=== PATIENT | male | born 1970 | race Caucasian/White ===

== ENCOUNTER 2017-01-07 06:04 | Emergency (ER) | payer MEDICAID ==
[~2017-01-07] VITALS: Ht 172.7 cm; Wt 70.0 kg
[~2017-01-07 06:04] MED LIST: PERC5TAB12 PO; PRED50 PO; ROBA500T PO
[2017-01-07 06:06] VITALS: BP 170/106; PULSE 125; RESP 15; TEMP 97.9; O2SAT 97
[2017-01-07] MEDS ORDERED: CYCLOBENZAPRINE HCL 10 MG TAB PO ONE (06:30)
[2017-01-07] MEDS ORDERED: IBUPROFEN 600 MG TAB PO ONE (06:30)
[2017-01-07] MEDS ORDERED: CYCL1TAB29 PO (06:36)
[2017-01-07] MEDS ORDERED: IBUP-1129 PO (06:36)
[2017-01-07] MEDS ORDERED: HYDR-3533 PO (06:36)
--- NOTE | 2017-01-07 06:36 | PD ---
HPI Chief Complaint: Back/ Neck Pain or Injury Time Seen by Provider: 06:25 Travel History International Travel<30 days: No Contact w/Intl Traveler<30days: No Traveled to known affect area: No History of Present Illness HPI 46-year-old male patient with history of chronic neck and back pains, herniated disc, presents to the ER today because he states that he was bending down to tie his shoe to go to work this morning when he had a stabbing pain in his left lower back area radiating down his left buttocks. He states that the pain was initiated and 810, but he took a Lortab from his and is now for a 10. He states he feels like a spasm every once in a while and worsens when he tries to move. He denies any incontinence, lower extremity numbness, or any other issues. Modifying Factors: Worse with movement Associated Signs & Symptoms: Left-sided lower back pain Risk Factors: History of chronic low back pain PFSH Past Medical History Anxiety: Yes Depression: No Chemotherapy: No Diminished Hearing: No Psychiatric: No Radiation Therapy: No Past Surgical History Other Surgery: No Social History Alcohol Use: Yes (OCC) Tobacco Use: Yes (/2 PPD) Substance Use: No Allergies-Medications (Allergen,Severity, Reaction): Coded Allergies: No Known Allergies (Verified , 01/07/17) Reported Meds & Prescriptions Reported Meds & Active Scripts Active No Active Prescriptions or Reported Medications Review of Systems Except as stated in HPI: all other systems reviewed are Neg Physical Exam Narrative GENERAL: Well-developed middle age white male patient currently in mild distress. Awake and oriented 3. SKIN: Focused skin assessment warm/dry. HEAD: Atraumatic. Normocephalic. EYES: Pupils equal and round. No scleral icterus. No injection or drainage. ENT: No nasal bleeding or discharge. Mucous membranes pink and moist. NECK: Trachea midline. No JVD. CARDIOVASCULAR: Regular rate and rhythm. No murmur appreciated. RESPIRATORY: No accessory muscle use. Clear to auscultation. Breath sounds equal bilaterally. GASTROINTESTINAL: Abdomen soft, non-tender, nondistended. Hepatic and splenic margins not palpable. MUSCULOSKELETAL: No obvious deformities. No clubbing. No cyanosis. No edema. BACK: No CVA tenderness. No rash. No point tenderness on palpation of the spine. There is mild tenderness to palpation of the left SI area. No saddle anesthesia. NEUROLOGICAL: Awake and alert. No obvious cranial nerve deficits. Motor grossly within normal limits. Normal speech. PSYCHIATRIC: Appropriate mood and affect; insight and judgment normal. Data Data Last Documented VS Vital Signs Date Time Temp Pulse Resp B/P (MAP) Pulse Ox O2 Delivery O2 Flow Rate FiO2 01/07/17 06:06 97.9 125 15 170/106 (127) 97 Room Air Orders Orders Ibuprofen (Motrin) (01/07/17 06:30) Cyclobenzaprine (Flexeril) (01/07/17 06:30) [facility] Medical Decision Making Medical Screen Exam Complete: Yes Emergency Medical Condition: Yes Medical Record Reviewed: Yes Differential Diagnosis Back strain versus sciatica versus muscle spasms versus herniated disc Narrative Course Patient has no focal neurological symptoms. Symptoms are more indicative of strain versus sciatica. At this point, my plan would be to give him symptomatic relief and have him follow-up with primary care physician. Return for any worsening in symptoms as necessary. The plan has been discussed with him and he states understanding. Diagnosis Primary Impression: Low back strain Additional Instructions: Avoid heavy lifting and strenuous activity for the next week. Return for any worsening in symptoms and as needed. Med/Other Pt SpecificInfo: Prescription(s) given Scripts Hydrocodone-Acetaminophen (Lortab) 5-325 Mg Tab 1-2 TAB PO Q6H Y for PAIN GREATER THAN 6, #15 TAB 0 Refills Prov: Jori Osei MD 01/07/17 Cyclobenzaprine (Flexeril) 10 Mg Tab 10 MG PO TID for Muscle Spasm, #15 TAB 0 Refills Prov: Jori Osei MD 01/07/17 Ibuprofen (Motrin Ib) 200 Mg Tablet 600 MG PO QID Y for PAIN SCALE 1 TO 10, #28 Prov: Jori Osei MD 01/07/17 Disposition: 01 DISCHARGE HOME Condition: Stable Jori Osei MD Jan 07, 2017 06:36
== END 2017-01-07 06:57 | disposition home or self-care (01) ==
LOC: NEPC 06:04
DX: S39.012A Strain of muscle, fascia and tendon of lower back, initial encounter (principal); X58.XXXA Exposure to other specified factors, initial encounter
CPT/HCPCS: 99284

== ENCOUNTER 2017-02-01 15:45 | Emergency (ER) | payer MEDICAID ==
[~2017-02-01] VITALS: Ht 172.7 cm; Wt 68.0 kg
[~2017-02-01 15:45] MED LIST changes: +CYCL10TA PO; +HYDR-3533 PO; +IBUP-1129 PO; -PERC5TAB12 PO; -PRED50 PO; -ROBA500T PO
[2017-02-01 15:46] VITALS: BP 172/76; PULSE 84; RESP 20; TEMP 98.4; O2SAT 98
[2017-02-01] MEDS ORDERED: DIAZEPAM 5 MG TAB PO ONE (17:30)
--- NOTE | 2017-02-01 17:31 | PD ---
HPI Chief Complaint: Back/ Neck Pain or Injury Time Seen by Provider: 17:09 Travel History International Travel<30 days: No Contact w/Intl Traveler<30days: No Traveled to known affect area: No History of Present Illness HPI 46yo M with PMH of chronic neck and back pain presents to the ED with c/o left arm numbness since he fell 4 days ago. Said his mopped the floor and he slipped and fell on his back and now has numbness in left arm. States that he has had intermittent numbness in left arm before but now it has been constant since the fall. Pt has left lower back spasms intermittently as well that is nonradiating. Denies any fever, chest pain, sob, n/v, abdominal pain, new weakness or numbness in legs, urinary or fecal incontinence. Pt did not take anything for pain at home. PFSH Past Medical History Anxiety: Yes Depression: No Cancer: No Chemotherapy: No Diminished Hearing: No Musculoskeletal: Yes (bone spur and disk) Psychiatric: No Radiation Therapy: No Tetanus Vaccination: < 5 Years Past Surgical History Other Surgery: No Social History Alcohol Use: Yes (OCC) Tobacco Use: Yes (1/2 PPD) Substance Use: No Allergies-Medications (Allergen,Severity, Reaction): Coded Allergies: No Known Allergies (Verified , 01/07/17) Reported Meds & Prescriptions Reported Meds & Active Scripts Active Mobic (Meloxicam) 7.5 Mg Tab 7.5 Mg PO DAILY 5 Days Review of Systems Except as stated in HPI: all other systems reviewed are Neg Physical Exam Narrative GENERAL: 46yo M in mild distress. SKIN: Focused skin assessment warm/dry. HEAD: Atraumatic. Normocephalic. EYES: Pupils equal and round. No scleral icterus. No injection or drainage. ENT: No nasal bleeding or discharge. Mucous membranes pink and moist. NECK: +TTP C6. CARDIOVASCULAR: Regular rate and rhythm. No murmur appreciated. RESPIRATORY: No accessory muscle use. Clear to auscultation. Breath sounds equal bilaterally. GASTROINTESTINAL: Abdomen soft, non-tender, nondistended. No rebound tenderness or guarding. BACK: No ttp thoracic or lumbar spine. +TTP left paraspinal L3-5. MUSCULOSKELETAL: No obvious deformities. No clubbing. No cyanosis. No edema. NEUROLOGICAL: Awake and alert. No obvious cranial nerve deficits. Motor grossly within normal limits in all extremities. No saddle paresthesia. Normal speech. Decreased sensation in left arm. PSYCHIATRIC: Appropriate mood and affect; insight and judgment normal. Data Data Last Documented VS Vital Signs Date Time Temp Pulse Resp B/P (MAP) Pulse Ox O2 Delivery O2 Flow Rate FiO2 02/01/17 15:46 98.4 84 20 172/76 (108) 98 Room Air Orders Orders Mri C Spine W/O Contrast (02/01/17 ) Diazepam (Valium) (02/01/17 17:30) Ketorolac Inj (Toradol Inj) (02/01/17 18:30) Acetamin-Hydrocod 325-5 Mg ([place] 5-325 (02/01/17 19:30) Dexamethasone Inj (Decadron Inj) (02/01/17 19:30) MDM Medical Decision Making Medical Screen Exam Complete: Yes Emergency Medical Condition: Yes Differential Diagnosis Cord compression vs. cervical spine fracture vs. disc herniation vs. musculoskeletal pain Narrative Course 46yo M with chronic neck and back pain here with c/o numbness in left arm that is constant rather than intermittent since falling 4 days ago. Pt denies any headache or LOC. No other focal neurologic deficits. MRI c spine showed disc bulges in multiple levels that has not significantly changed compare to prior 1 year ago. Pt given valium which helped with the muscle spasms. He refused toradol and given 1 dose of lortab. I reviewed [facility] and pt las had #15 lortab on 01/07/17. No other prescriptions. Pt also given dose of decadron here. Pt instructed to follow up with neurosurgeon regarding these findings that have not changed and will need pain management as outpatient. I discussed MRI results with Dr. Torres and he recommended prescribing an antiinflammatory medication like mobic and pt can follow up as outpatient. Also gave pt a copy of his MRI cervical spine report. Diagnosis Primary Impression: Neck pain Referrals: Miah Torres MD call for appointment Patient Instructions: General Instructions Departure Forms: Tests/Procedures Additional Instructions: Please follow up with your primary care physician for pain management referral. Please follow up with neurosurgeon Dr. Torres regarding the disc bulges seen on your MRI cervical spine. Return to the ED if symptoms worsen. Med/Other Pt SpecificInfo: Prescription(s) given Scripts Meloxicam (Mobic) 7.5 Mg Tab 7.5 MG PO DAILY for Pain for 5 Days, #5 TAB 0 Refills Prov: Concepcion Farfan DO 02/01/17 Disposition: 01 DISCHARGE HOME Condition: Stable Concepcion Farfan DO Feb 01, 2017 17:31
[2017-02-01] MEDS ORDERED: KETOROLAC TROMETHAMINE 60 MG/2 ML (IM) VIAL IM ONE (18:30)
--- NOTE | 2017-02-01 19:11 | RADRPT ---
EXAM DATE/TIME: 02/01/2017 18:30 [facility] COMPARISON: MRI CERVICAL SPINE W/O CONTRAST, October 24, 2015, 19:20. INDICATIONS : Left arm numbness and neck pain after fall 4 days ago. MEDICAL HISTORY : None. SURGICAL HISTORY : Hip replacement. ENCOUNTER: Initial ACUITY: 4-6 days PAIN SCORE: 6/10 LOCATION: neck. TECHNIQUE: Multiplanar, multisequence MRI examination of the cervical spine was performed. FINDINGS: VERTEBRAE: Normal vertebral body height. Homogeneous marrow signal. Small anterior extradural defects are again noted on the sagittal images at the C3-4 through C6-7 level. ALIGNMENT: No evidence of subluxation. CORD: Normal configuration and signal. POST FOSSA: The cerebellar tonsils are normal in position. C2-C3: The thecal sac has a normal configuration. There is no evidence of disc herniation or spinal canal s tenosis. The neural foramina are patent bilaterally. C3-C4: There is a posterior disc bulge versus protrusion which comes in close contact with anterior cord que stion of slight flattening no abnormal signal. The neuroforamina are patent. The findings do not appe ar significantly changed. C4-C5: Mild disc bulge with mild mass effect on the anterior thecal sac and no mass effect upon the cord. Th e neural foramina are patent. The findings are stable. C5-C6: A mild posterior disc bulge is noted which comes into close contact with anterior cord with apparent slight flattening. On the prior study there was a small protrusion in this region. The neural foramin a remain patent. C6-C7: Broad-based disc bulge which meets the anterior cord with apparent mild flattening. The CSF space kostas rounding the cord is obliterated and the AP residual diameter of the canal measures 8 mm. This does n ot appear significantly changed. There is mild narrowing of the neural foramina. C7-T1: Mild annular disc bulge with mass effect on the thecal sac no mass effect upon the cord. Neural rashawn suki remain patent. The findings are stable. CONCLUSION: 1. 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 This does not appear significantly ch anged. 2. Disc bulge versus protrusion at C3-4 apparent mild flattening of the cord. This does not appear si gnificantly changed. 3. Disc bulges at C4-5, C5-6 and C7-T1 without significant change. Morgan Marquez MD on February 01, 2017 at 19:03 Board Certified Radiologist. This report was verified electronically.
[2017-02-01] MEDS ORDERED: IBUP-232 PO (19:25)
[2017-02-01] MEDS ORDERED: ACETAMINOPHEN/HYDROcodone 325 MG/5 MG TAB PO ONE (19:30)
[2017-02-01] MEDS ORDERED: DEXAMETHASONE SOD PHOS 20 MG/5 ML VIAL IM ONE (19:30)
[2017-02-01] MEDS ORDERED: MOBI7.5T PO (19:49)
== END 2017-02-01 20:03 | disposition home or self-care (01) ==
LOC: NEPD 15:45
DX: M50.223 Other cervical disc displacement at C6-C7 level (principal); G89.29 Other chronic pain; W01.0XXA Fall on same level from slipping, tripping and stumbling without subsequent striking against object, initial encounter; F41.9 Anxiety disorder, unspecified
CPT/HCPCS: 72141; 96372; 99285; J1100

== ENCOUNTER 2017-03-14 07:10 | Inpatient (IN) | payer MEDICAID, OTHER ==
[2017-03-14] VITALS (24 sets, daily range): BP systolic 102–226; BP diastolic 62–125; PULSE 60–95; RESP 16–24; TEMP 98.3–99; O2SAT 98–100
[~2017-03-14] VITALS: Ht 177.8 cm; Wt 66.5 kg
[~2017-03-14 07:10] MED LIST changes: -CYCL10TA PO; -HYDR-3533 PO; -IBUP-1129 PO; +MOBI7.5T PO
[2017-03-14] MEDS ORDERED: ETOMIDATE 40 MG/20 ML VIAL ONE (07:17)
[2017-03-14] MEDS ORDERED: SUCCINYLCHOLINE CHLORIDE 200 MG/10 ML VIAL ONE (07:18)
[2017-03-14] MEDS ORDERED: SODIUM CHLOR 0.9% 1000 ML INJ 1,000 ML IV ONE ×2 (07:22→08:15)
[2017-03-14] MEDS ORDERED: PROPOFOL 500 MG/50 ML INJ 0 ML ONE (07:22)
--- NOTE | 2017-03-14 07:26 | PD ---
HPI Chief Complaint: OD/ Ingestion Time Seen by Provider: 07:22 Travel History International Travel<30 days: No Contact w/Intl Traveler<30days: No Traveled to known affect area: No History of Present Illness HPI The patient is a 46-year-old male who presents to the emergency department via EMS with altered mental status after an apparent drug ingestion and/or overdose. According to EMS the patient and a female were found on the ground, and the bathroom, with vomit next to them. The other patient apparently was intubated on scene for altered mental status. The patient himself was noted to have altered mental status, was nonverbal, and acting aggressive toward medical staff. EMS administered Ativan 2 mg intermuscularly prior to arrival. Upon arrival the patient would open his eyes, with at times move all 4 extremities, but would not follow commands or answer questions. No further history was obtainable from the patient. PFSH Past Medical History Anxiety: Yes Depression: No Cancer: No Chemotherapy: No Diminished Hearing: No Musculoskeletal: Yes (bone spur and disk) Psychiatric: No Radiation Therapy: No Past Surgical History Other Surgery: No Social History Alcohol Use: Yes (OCC) Tobacco Use: Yes (1/2 PPD) Substance Use: No Allergies-Medications (Allergen,Severity, Reaction): Coded Allergies: No Known Allergies (Verified Adverse Reaction, Unknown, 03/14/17) Reported Meds & Prescriptions Reported Meds & Active Scripts Active Mobic (Meloxicam) 7.5 Mg Tab 7.5 Mg PO DAILY 5 Days Review of Systems ROS Limitations: Altered Mental Status Except as stated in HPI: all other systems reviewed are Neg Physical Exam Exam Limitations: Clinical Condition, Altered Mental Status Narrative GENERAL: 46-year-old male who at times would open his eyes and move all 4 extremities but would not follow commands or answer questions. SKIN: Focused skin assessment warm/dry. HEAD: Small area of ecchymosis noted just superior and lateral to the right orbit. EYES: Pupils equal and round. 3 mm bilateral and reactive. ENT: No nasal bleeding or discharge. Mucous membranes pink and moist. NECK: Trachea midline. No JVD. CARDIOVASCULAR: Regular rate and rhythm. No murmur appreciated. Heart rate in the 90s. RESPIRATORY: No accessory muscle use. Clear to auscultation. Breath sounds equal bilaterally. GASTROINTESTINAL: Abdomen soft, non-tender, nondistended. MUSCULOSKELETAL: No obvious deformities. No clubbing. No cyanosis. No edema. NEUROLOGICAL: Awake, would open eyes spontaneously move all 4 extremity is, but would not answer questions or follow commands. PSYCHIATRIC: Unable to assess. Data Data Last Documented VS Vital Signs Date Time Temp Pulse Resp B/P (MAP) Pulse Ox O2 Delivery O2 Flow Rate FiO2 03/14/17 09:08 60 131/79 (96) 100 03/14/17 07:48 98.3 16 Ventilator 03/14/17 07:24 100 Orders Orders Etomidate Inj (Amidate Inj) (03/14/17 07:17) Succinylcholine Inj (Quelicin Inj) (03/14/17 07:18) Propofol 500 Mg/50 Ml Inj (Diprivan 500 (03/14/17 07:22) Electrocardiogram (03/14/17 07:22) Complete Blood Count With Diff (03/14/17:22) Comprehensive Metabolic Panel (03/14/17 07:22) Prothrombin Time / Inr (Pt) (03/14/17:22) Act Partial Throm Time (Ptt) (03/14/17 07:22) Urinalysis - C+S If Indicated (03/14/17 07:22) Chest, Single Ap (03/14/17 07:22) Ct Brain W/O Iv Contrast(Rout) (03/14/17 07:22) Arterial Blood Gas (Abg) (03/14/17 07:22) Iv Access Insert/Monitor (03/14/17 07:22) Ecg Monitoring (03/14/17:22) Oximetry (03/14/17:22) Efrain-Gastric Tube Insert/Mon (03/14/17 07:22) Urinary Catheter Insert/Apply (03/14/17 07:22) Lorazepam Inj (Ativan Inj) (03/14/17 07:30) Sodium Chloride 0.9% Flush (Ns Flush) (03/14/17 07:30) Sodium Chlor 0.9% 1000 Ml Inj (Ns 1000 M (03/14/17 07:22) Drug Screen, Random Urine (03/14/17 07:22) Alcohol (Ethanol) (03/14/17 07:22) Salicylates (Aspirin) (03/14/17 07:22) Tylenol (Acetaminophen) (03/14/17 07:22) Creatine Kinase (Cpk) (03/14/17 07:22) Lactic Acid (03/14/17 07:22) Haloperidol Inj (Haldol Inj) (03/14/17 07:30) Etomidate Inj (Amidate Inj) (03/14/17 07:30) Succinylcholine Inj (Quelicin Inj) (03/14/17 07:30) Propofol 1000 Mg/100 Ml Inj (Diprivan 10 (03/14/17 07:30) ^ Infusion (03/14/17 07:26) RASS (03/14/17 07:26) Neurological Rass Scale EMILY.Q2H (03/14/17 07:26) Sodium Chlor 0.9% 1000 Ml Inj (Ns 1000 M (03/14/17 08:15) Labs Laboratory Tests Test 03/14/17 07:30 White Blood Count 16.5 TH/MM3 Red Blood Count 5.40 MIL/MM3 Hemoglobin 16.2 GM/DL Hematocrit 47.2 % Mean Corpuscular Volume 87.6 FL Mean Corpuscular Hemoglobin 30.1 PG Mean Corpuscular Hemoglobin Concent 34.4 % Red Cell Distribution Width 13.6 % Platelet Count 220 TH/MM3 Mean Platelet Volume 9.8 FL Neutrophils (%) (Auto) 76.4 % Lymphocytes (%) (Auto) 14.4 % Monocytes (%) (Auto) 7.8 % Eosinophils (%) (Auto) 0.9 % Basophils (%) (Auto) 0.5 % Neutrophils # (Auto) 12.6 TH/MM3 Lymphocytes # (Auto) 2.4 TH/MM3 Monocytes # (Auto) 1.3 TH/MM3 Eosinophils # (Auto) 0.1 TH/MM3 Basophils # (Auto) 0.1 TH/MM3 CBC Comment DIFF FINAL Differential Comment Prothrombin Time 10.5 SEC Prothromb Time International Ratio 1.0 RATIO Activated Partial Thromboplast Time 23.6 SEC Urine Color YELLOW Urine Turbidity CLEAR Urine pH 6.0 Urine Specific Perry 1.022 Urine Protein TRACE mg/dL Urine Glucose (UA) NEG mg/dL Urine Ketones NEG mg/dL Urine Occult Blood NEG Urine Nitrite NEG Urine Bilirubin NEG Urine Urobilinogen LESS THAN 2.0 MG/DL Urine Leukocyte Esterase NEG Urine RBC LESS THAN 1 /hpf Urine WBC LESS THAN 1 /hpf Urine Hyaline Casts 1 /lpf Urine Mucus FEW /lpf Microscopic Urinalysis Comment CULT NOT INDICATED Blood Urea Nitrogen 15 MG/DL Creatinine 1.04 MG/DL Random Glucose 121 MG/DL Total Protein 8.4 GM/DL Albumin 4.5 GM/DL Calcium Level 9.9 MG/DL Alkaline Phosphatase 65 U/L Aspartate Amino Transf (AST/SGOT) 17 U/L Alanine Aminotransferase (ALT/SGPT) 21 U/L Total Bilirubin 0.3 MG/DL Sodium Level 143 MEQ/L Potassium Level 5.0 MEQ/L Chloride Level 108 MEQ/L Carbon Dioxide Level 28.3 MEQ/L Anion Gap 7 MEQ/L Estimat Glomerular Filtration Rate 77 ML/MIN Lactic Acid Level 5.0 mmol/L Total Creatine Kinase 169 U/L Salicylates Level 2.5 MG/DL Urine Opiates Screen NEG Acetaminophen Level LESS THAN 2.0 MCG/ML Urine Barbiturates Screen NEG Urine Amphetamines Screen NEG Urine Benzodiazepines Screen POS Urine Cocaine Screen NEG Urine Cannabinoids Screen POS Ethyl Alcohol Level LESS THAN 3 MG/DL MDM Medical Decision Making Medical Screen Exam Complete: Yes Emergency Medical Condition: Yes Medical Record Reviewed: Yes Interpretation(s) EKG reveals normal sinus rhythm with a rate of 70. No ischemic changes or ectopy noted. Questionable peaked T waves in lead V3 and V4. Last Impressions Chest X-Ray 03/14/17721 Signed Impressions: Service Date/Time: Tuesday, March 14, 2017 07:47 - CONCLUSION: 1. ETT in good position. NGT in the stomach. 2. No acute abnormality. Qasim Saleh MD Laboratory Tests Test 03/14/17 07:30 White Blood Count 16.5 TH/MM3 Red Blood Count 5.40 MIL/MM3 Hemoglobin 16.2 GM/DL Hematocrit 47.2 % Mean Corpuscular Volume 87.6 FL Mean Corpuscular Hemoglobin 30.1 PG Mean Corpuscular Hemoglobin Concent 34.4 % Red Cell Distribution Width 13.6 % Platelet Count 220 TH/MM3 Mean Platelet Volume 9.8 FL Neutrophils (%) (Auto) 76.4 % Lymphocytes (%) (Auto) 14.4 % Monocytes (%) (Auto) 7.8 % Eosinophils (%) (Auto) 0.9 % Basophils (%) (Auto) 0.5 % Neutrophils # (Auto) 12.6 TH/MM3 Lymphocytes # (Auto) 2.4 TH/MM3 Monocytes # (Auto) 1.3 TH/MM3 Eosinophils # (Auto) 0.1 TH/MM3 Basophils # (Auto) 0.1 TH/MM3 CBC Comment DIFF FINAL Differential Comment Prothrombin Time 10.5 SEC Prothromb Time International Ratio 1.0 RATIO Activated Partial Thromboplast Time 23.6 SEC Urine Color YELLOW Urine Turbidity CLEAR Urine pH 6.0 Urine Specific Perry 1.022 Urine Protein TRACE mg/dL Urine Glucose (UA) NEG mg/dL Urine Ketones NEG mg/dL Urine Occult Blood NEG Urine Nitrite NEG Urine Bilirubin NEG Urine Urobilinogen LESS THAN 2.0 MG/DL Urine Leukocyte Esterase NEG Urine RBC LESS THAN 1 /hpf Urine WBC LESS THAN 1 /hpf Urine Hyaline Casts 1 /lpf Urine Mucus FEW /lpf Microscopic Urinalysis Comment CULT NOT INDICATED Blood Urea Nitrogen 15 MG/DL Creatinine 1.04 MG/DL Random Glucose 121 MG/DL Total Protein 8.4 GM/DL Albumin 4.5 GM/DL Calcium Level 9.9 MG/DL Alkaline Phosphatase 65 U/L Aspartate Amino Transf (AST/SGOT) 17 U/L Alanine Aminotransferase (ALT/SGPT) 21 U/L Total Bilirubin 0.3 MG/DL Sodium Level 143 MEQ/L Potassium Level 5.0 MEQ/L Chloride Level 108 MEQ/L Carbon Dioxide Level 28.3 MEQ/L Anion Gap 7 MEQ/L Estimat Glomerular Filtration Rate 77 ML/MIN Lactic Acid Level 5.0 mmol/L Total Creatine Kinase 169 U/L Salicylates Level 2.5 MG/DL Urine Opiates Screen NEG Acetaminophen Level LESS THAN 2.0 MCG/ML Urine Barbiturates Screen NEG Urine Amphetamines Screen NEG Urine Benzodiazepines Screen POS Urine Cocaine Screen NEG Urine Cannabinoids Screen POS Ethyl Alcohol Level LESS THAN 3 MG/DL CT of the head reveals no acute intracranial abnormality Differential Diagnosis Differential diagnoses includes drug ingestion, accidental overdose, intentional overdose, closed head injury, intracranial hemorrhage, electrolyte abnormality, encephalopathy, meningitis. Narrative Course IV was established, labs are drawn and sent, the patient was placed on cardiac telemetry monitoring and continuous pulse oximetry monitoring. However, the patient cannot hold still, was acting aggressively towards staff. Therefore, the patient was administered Ativan 2 mg intravenously and Haldol 5 mg intramuscularly. The patient continued to be aggressive towards staff and would not follow commands. Therefore, patient was intubated using RSI with etomidate and succinylcholine. Postintubation chest x-ray was obtained. CPK was sent to lab to evaluate for rhabdomyolysis and ABG was ordered to evaluate for possible, monoxide poisoning. Machado catheter was placed. OG tube was placed. CT the brain was obtained. The patient's white count was slightly elevated, chest x-ray reveals endotracheal tube and NG tube are in place, however, no evidence of pneumonia. Tox screen is positive for benzodiazepines and cannabinoids. Salicylate and acetaminophen level were unremarkable. The patient's lactic acid was elevated at 5.0, therefore, the patient was administered a second liter of IV fluids. Critical Care Narrative Aggregate critical care time was 45 minutes. Time to perform other separately billable procedures was not included in the critical care time. My time did not include minutes spent treating any other patients simultaneously or on activities that did not directly contribute to the patient's treatment. The services I provided to this patient were to treat and/or prevent clinically significant deterioration that could result in: Anoxia, hypoxia, arrhythmia, . I provided critical care services requiring my management, as noted below: Chart data review, documentation time, medication orders and management, vital sign assessments/reviewing monitor data, ordering and reviewing lab tests, ordering and interpreting/reviewing x-rays and diagnostic studies, care of the patient and discussion of the patient with the admitting physicians. Procedures Procedure Narrative INTUBATION: The patient was put in optimal position for the procedure. Rapid sequence intubation was initiated by me using 20 milligrams of etomidate IV and 100 milligrams of succinylcholine IV. The patient was intubated with a 8-0 cuffed endotracheal tube. Tube placement was confirmed by visualization of the tube and balloon passing through the cords, capnometry and subsequent chest x- ray. Breath sounds were equal and well aerated bilaterally postintubation. No breath sounds over stomach. Patient tolerated procedure well. Physician Communication Physician Communication The on-call lead software tester was paged for admission. I discussed the patient with Dr. Cummins who agrees with admission. Diagnosis Primary Impression: Altered mental status Qualified Codes: R41.82 - Altered mental status, unspecified Additional Impression: Drug ingestion Qualified Codes: T50.904A - Poisoning by unspecified drugs, medicaments and biological substances, undetermined, initial encounter Admitting Information Admitting Physician Requests: Admit Condition: Serious Orville Cabrera MD Mar 14, 2017 07:26
[2017-03-14] MEDS ORDERED: HALOPERIDOL LACTATE 5 MG/ML AMP IM ONE (07:30)
[2017-03-14] MEDS ORDERED: LORazepam 2 MG/ML VIAL IV PUSH ONE (07:30)
[2017-03-14] MEDS ORDERED: ETOMIDATE 20 MG/10 ML VIAL IV PUSH ONE (07:30)
[2017-03-14] MEDS ORDERED: SODIUM CHLORIDE 0.9% FLUSH 10 ML FLUSH IVF PRN (07:30)
[2017-03-14] MEDS ORDERED: SUCCINYLCHOLINE CHLORIDE 100 MG/5 ML SYRINGE IV PUSH ONE (07:30)
[2017-03-14] MEDS: PROPOFOL 1000 MG/100 ML INJ 100 ML IV PRN ×4 (07:38→20:47)
[2017-03-14 07:50] LABS: AUTOMATED NEUTROPHIL # 12.6 TH/MM3 (1.8-7.7); BASOPHIL # 0.1 TH/MM3 (0-0.2); BASOPHIL % 0.5 % (0.0-2.0); EOSINOPHIL # 0.1 TH/MM3 (0-0.4); EOSINOPHIL % 0.9 % (0.0-4.0); HEMATOCRIT 47.2 % (39.0-51.0); HEMO FLAGS DIFF FINAL; LYMPH % 14.4 % (9.0-44.0); LYMPHOCYTE # 2.4 TH/MM3 (1.0-4.8); MEAN CELL VOLUME 87.6 FL (80.0-100.0); MEAN CORPUSCULAR HEMOGLOBIN 30.1 PG (27.0-34.0); MEAN CORPUSCULAR HGB CONC 34.4 % (32.0-36.0); MONO % 7.8 % (0.0-8.0); NEUT % 76.4 % (16.0-70.0); PLATELET COUNT 220 TH/MM3 (150-450); RED CELL DISTRIBUTION WIDTH 13.6 % (11.6-17.2); WHITE BLOOD COUNT 16.5 TH/MM3 (4.0-11.0)
[2017-03-14 07:55] LABS: BLOOD, URINE NEG (NEG); GLUCOSE,URINE NEG (NEG); HYALINE CAST, URINE 1 /lpf (RARE); KETONE, URINE NEG (NEG); MUCUS URINE FEW /lpf (OCC); NITRITE,URINE NEG (NEG); URINE COLOR YELLOW (YELLW/STRAW)
[2017-03-14 07:56] LABS: COMMENT (UR) CULT NOT INDICATED; CULTURE IF INDICATED CULT NOT INDICATED
[2017-03-14 07:58] LABS: APTT (PATIENT) 23.6 SEC (24.3-30.1); PROTHROMBIN TIME - PATIENT 10.5 SEC (9.8-11.6)
[2017-03-14 08:07] LABS: ALT (GPT) 21 U/L (12-78); ANION GAP 7 MEQ/L (5-15); AST (GOT) 17 U/L (15-37); BICARBONATE 28.3 MEQ/L (21.0-32.0); BLOOD UREA NITROGEN 15 MG/DL (7-18); CHLORIDE 108 MEQ/L (98-107); GLOMERULAR FILTRATION RATE 77 ML/MIN (>89); SODIUM (NA) 143 MEQ/L (136-145)
[2017-03-14 08:08] LABS: ALKALINE PHOSPHATASE 65 U/L (45-117); CREATINE KINASE 169 U/L (39-308); TOTAL BILIRUBIN ADULT 0.3 MG/DL (0.2-1.0)
--- NOTE | 2017-03-14 08:13 | RADRPT ---
EXAM DATE/TIME: 03/14/2017 07:47 [facility] COMPARISON: No previous studies available for comparison. INDICATIONS : Evaluate ET tube placement. MEDICAL HISTORY : Unobtainable SURGICAL HISTORY : Unobtainable ENCOUNTER: Initial ACUITY: 1 day PAIN SCORE: Non-responsive. LOCATION: Bilateral chest FINDINGS: There is an ETT at the level of the clavicles. There is an NGT coiled in the stomach. Lungs are clear . Cardiomediastinal contours are within normal limits. Bony thorax is intact. CONCLUSION: 1. ETT in good position. NGT in the stomach. 2. No acute abnormality. Qasim Saleh MD on March 14, 2017 at 8:10 Board Certified Radiologist. This report was verified electronically.
[2017-03-14 08:14] LABS: ACETAMINOPHEN LESS THAN 2.0 MCG/ML (10.0-30.0); ALCOHOL LESS THAN 3 MG/DL (0-5)
--- NOTE | 2017-03-14 09:23 | RADRPT ---
EXAM DATE/TIME: 03/14/2017 08:27 [facility] COMPARISON: No previous studies available for comparison. INDICATIONS : Altered mental statu, patient found down and unresponsive with bruising above ritght eye. RADIATION DOSE: 35.11 CTDIvol (mGy) MEDICAL HISTORY : Non-responsive. SURGICAL HISTORY : Non-responsive. ENCOUNTER: Initial ACUITY: 1 day PAIN SCALE: Non-responsive LOCATION: cranial TECHNIQUE: Multiple contiguous axial images were obtained of the head. Using automated exposure control and adj ustment of the mA and/or kV according to patient size, radiation dose was kept as low as reasonably a chievable to obtain optimal diagnostic quality images. DICOM format image data is available electro nically for review and comparison. FINDINGS: CEREBRUM: The ventricles are normal for age. No evidence of midline shift, mass lesion, hemorrhage or acute in farction. No extra-axial fluid collections are seen. POSTERIOR FOSSA: The cerebellum and brainstem are intact. The 4th ventricle is midline. The cerebellopontine angle i s unremarkable. EXTRACRANIAL: The visualized portion of the orbits is intact. SKULL: The calvaria is intact. No evidence of skull fracture. CONCLUSION: 1. No acute intracranial abnormality. Qasim Saleh MD on March 14, 2017 at 9:20 Board Certified Radiologist. This report was verified electronically.
[2017-03-14 10:00] LABS: BLOOD GAS BASE EXCESS 5.3 mmol/L (-2-2); BLOOD GAS CARBOXYHEMOGLOBIN 0.7 % (0-4); BLOOD GAS HCO3 29 mmol/L (22-26); BLOOD GAS METHEMOGLOBIN 0.9 % (0-2); BLOOD GAS O2 HGB SATURATION 99 % (90-100); BLOOD GAS OXYGEN CONTENT 21.4 Vol % (12.0-20.0); BLOOD GAS PCO2 41 mmHg (38-42); BLOOD GAS PO2 517 mmHG (61-120); BLOOD GAS TOTAL HGB 14.5 G/DL (12.0-16.0); CRITICAL VALUE NO; OXYGEN DEVICE VENTILATOR; TEMP CORR TO 98.6
[2017-03-14 10:01] LABS: FIO2 100 %; VENT SETTINGS PRVC/AC
[2017-03-14 10:02] LABS: DRAW SITE LT BRACHIAL; NUMBER OF ARTERIAL PUNCTURES 1; STAT YES; ULNAR PULSE PRESENT
[2017-03-14] MEDS ORDERED: MISCELLANEOUS NURSING INFORMATION XX SCH (10:30)
[2017-03-14] MEDS ORDERED: LACTULOSE SYRUP 20 GM/30 ML CUP PO PRN (10:30)
[2017-03-14] MEDS ORDERED: CHLORHEXIDINE GLUCONATE 2 % 1 PACK (2 CLOTHS) TOP PRN (10:30)
[2017-03-14] MEDS ORDERED: SENNOSIDES 8.6 MG TAB PO PRN (10:30)
[2017-03-14] MEDS ORDERED: MAGNESIUM HYDROXIDE SUSP 30 ML CUP PO PRN (10:30)
[2017-03-14] MEDS ORDERED: BISACODYL 10 MG SUPP RECTAL PRN (10:30)
[2017-03-14] MEDS: RESP: ALBUTEROL 2.5 MG/IPRATROPIUM 0.5 MG NEB (SCH) INH ×3 (10:48→20:01)
[2017-03-14] MEDS ORDERED: FAMOTIDINE 20 MG TAB PO SCH (11:00)
[2017-03-14] MEDS ORDERED: GLUCAGON 1 MG/ML VIAL OTHER PRN (11:15)
[2017-03-14] MEDS ORDERED: DEXTROSE 50% IN WATER 50 ML VIAL(D50) IV PUSH PRN (11:15)
--- NOTE | 2017-03-14 11:41 | MH ---
cc: VALEIRO BUSCH M.D. DATE OF ADMISSION 03/14/2017 DATE OF 1970 HISTORY The patient is a 46-year-old male with a history of anxiety who presented to [facility] ED via EMS with altered mental status after a drug ingestion/overdose. The patient was found on the ground in the bathroom with another friend who is also brought into the ED intubated. On arrival to the ED , he was nonverbal, combative towards ED staff. EMS administered Ativan 2 mg IV prior to arrival and in the ED, he was given additional Ativan and Haldol for agitation. He was eventually intubated with Etomidate succinylcholine and placed on full mechanical ventilation. CT scan of the brain in the ED showed no acute intracranial abnormalities and his urine drug screen was positive for benzodiazepines and cannabinoids. His laboratory data was significant for lactic acidemia with lactic acid level of 5.0. The patient was given 2 liters of crystalloid in the ED and his repeat lactic acid cleared at 1.2. Chest x-ray post intubation showed no acute abnormalities. When seen in the ED, he was sedated with Diprivan and on full mechanical ventilation. ABG post-intubation showed a pH of 7.46, CO2 41, pAO2 517, bicarb 29, sats 99%. PAST MEDICAL HISTORY Significant for anxiety. PAST SURGICAL HISTORY None SOCIAL HISTORY Occasional drinker, active smoker. ALLERGIES NO KNOWN DRUG ALLERGIES. REPORTED MEDICATIONS Mobic REVIEW OF SYSTEMS As per HPI, the rest of the review of systems unobtainable. FAMILY HISTORY Unobtainable PHYSICAL EXAM This is a 46-year-old male intubated for airway protection. VITAL SIGNS: Afebrile with temperature of 98.3, pulse of 69, blood pressure 141/80, saturation 100% on vent setting PRVC rate of 16, tidal volume 501, PEEP 5, FIO2 60%. HEENT: Atraumatic, normocephalic pupil equal and reactive to accommodation. Extraocular muscles intact. Conjunctivae pink. Nonicteric sclerae. Oral mucosa within normal. NECK: Supple. No JVD, adenopathy or thyromegaly. Trachea midline. CARDIOVASCULAR: Regular rate and rhythm. Normal S1-S2. No murmurs, rubs or gallops. PULMONARY: Bilateral equal entry. No rales or wheezing. ABDOMEN: Soft, nontender, no distension. Positive bowel sounds. EXTREMITIES: No cyanosis, clubbing or edema. NEUROLOGIC: Intubated and sedated. LABORATORY DATA Sodium 143, potassium 5, chloride 108, CO2 28, BUN 15, creatinine 1.04, glucose 121, lactic acid 5.0 and on repeat 1.2. LFTs within normal. Total protein 8.4. WBC 16.5, hemoglobin 16.2, hematocrit 47, platelet count 220, INR 1, PT 10.5, PTT 23.6. Urine drug screen positive for benzodiazepines, cannabinoids. ABG showed a pH of 7.46, CO2 41, pAO2 517, bicarb 29, sats of 99%. Urinalysis negative for ketones, leukocyte esterase, nitrites. RADIOGRAPHIC STUDIES CT of the brain no acute intracranial findings. Chest x-ray post-intubation showed ET tube above the brit. No acute abnormalities. IMPRESSION 1. Altered mental status. 2. Polysubstance abuse 3. Vent dependent respiratory failure. 4. Lactic acidemia resolved 5. Leukocytosis likely stress-related. RECOMMENDATIONS 1. Continue with Diprivan infusion for sedation and daily sedation vacation when appropriate. 2. CT scan of the brain in the ED negative for acute intracranial findings. 3. Continue with vent support and maintain sats above 92%. 4. Bronchodilators in the form of DuoNeb q4 and will initiate ICU vent bundle. 5. Decrease FIO2 to 40% as tolerated. 6. Start spontaneous breathing trials as nelida. 7. Monitor heart rate and blood pressure closely and maintain MAP greater than 65 mmHg. 8. Lactic acid cleared. The patient was given 2 liters of crystalloids in the ED. We will continue with maintenance fluids D5 NS at 84 mL an hour. 9. Monitor renal function and electrolyte replacement per protocol. 10. Keep n.p.o. for now and place on Pepcid 20 mg q12 for GI prophylaxis. 11. Nutritional support via tube feeds to start tomorrow if remains intubated. 12. We will hold off on antibiotics at this time as there are no signs of an infectious process. Monitor for signs of infection which include fever and WBC. 13. Monitor CBC. 14. Sliding scale insulin with Accu-Chek's to maintain euglycemia. 15. GI prophylaxis with Pepcid 20 mg [id number] and DVT prophylaxis with SCD's and heparin subcu. 16. Further recommendations will be based on hospital course. MD SANDEEP Dunne/FARRAH /11:04 AM /11:22 AM [facility]
[2017-03-14] MEDS: FAMOTIDINE 20 MG/2 ML VIAL IV PUSH SCH (12:00)
[2017-03-14] MEDS: INSULIN NovoLIN REGULAR SUPPLEMENTAL SCALE SQ SCH ×3 (12:00→20:00)
[2017-03-14] MEDS: HEPARIN SODIUM - SQ 10,000 UNITS/ML VIAL SQ SCH ×2 (12:09→23:00)
[2017-03-14] MEDS: DEXT 5%-NACL 0.9% 1000 ML INJ 1,000 ML IV SCH (15:58)
--- NOTE | 2017-03-14 17:53 | EKG ---
Date Performed: 03/14/2017 Time Performed: 07:57:33 PTAGE: 46 years EKG: Sinus rhythm NORMAL ECG NO PREVIOUS TRACING DOCTOR: Ministerio Cassidy Interpretating Date/Time 03/14/2017 17:53:07
[2017-03-14] MEDS ORDERED: LORazepam 2 MG/ML VIAL IV PUSH PRN (19:30)
[2017-03-14] MEDS ORDERED: HALOPERIDOL LACTATE 5 MG/ML AMP IV PUSH ONE (19:30)
[2017-03-14] MEDS ORDERED: diphenhydrAMINE HCL 50 MG/ML VIAL IV PUSH ONE (19:30)
[2017-03-14] MEDS ORDERED: diphenhydrAMINE HCL 50 MG/ML VIAL ONE (19:30)
[2017-03-14] MEDS ORDERED: DEXMEDETOMIDINE INJ 200 MCG in SODIUM CHLORIDE 0.9% INJ 50 ML IV PRN (19:30)
[2017-03-14] MEDS ORDERED: LORazepam 2 MG/ML VIAL ONE (19:31)
[2017-03-14] MEDS ORDERED: ROCURONIUM INJ 50 MG/5 ML VIAL ONE (19:35)
[2017-03-14] MEDS ORDERED: fentaNYL CITRATE 250 MCG/5 ML AMP IV PUSH ONE (19:45)
[2017-03-14] MEDS ORDERED: fentaNYL DRIP 250 ML IV PRN (20:15)
[2017-03-14] MEDS ORDERED: MIDAZOLAM 100 MG/100 ML INJ 100 ML IV PRN (20:15)
[2017-03-14] MEDS: DOCUSATE SODIUM 50 MG/SENNA 8.6 MG TAB PO SCH (21:57)
[2017-03-15] VITALS (17 sets, daily range): BP systolic 96–161; BP diastolic 54–86; PULSE 56–92; RESP 16–25; TEMP 97.6–98.9; O2SAT 98–100
[2017-03-15] MEDS: FAMOTIDINE 20 MG/2 ML VIAL IV PUSH SCH ×3 (00:08→23:13)
[2017-03-15 01:09] LABS: BLOOD GAS CARBOXYHEMOGLOBIN 0.8 % (0-4); BLOOD GAS HCO3 25 mmol/L (22-26); BLOOD GAS O2 HGB SATURATION 98 % (90-100); BLOOD GAS OXYGEN CONTENT 19.4 Vol % (12.0-20.0); BLOOD GAS PCO2 35 mmHg (38-42); BLOOD GAS PO2 196 mmHg (61-120); BLOOD GAS TOTAL HGB 13.8 G/DL (12.0-16.0); CRITICAL VALUE NO; TEMP CORR TO 98.6
[2017-03-15 01:10] LABS: OXYGEN DEVICE VENTILATOR
[2017-03-15 01:11] LABS: DRAW SITE RT RADIAL; FIO2 40 %; NUMBER OF ARTERIAL PUNCTURES 1; ULNAR PULSE PRESENT
[2017-03-15 01:12] LABS: STAT NO
[2017-03-15] MEDS ORDERED: ROCURONIUM INJ 50 MG/5 ML VIAL ONE (01:49)
[2017-03-15] MEDS: PROPOFOL 1000 MG/100 ML INJ 100 ML IV PRN ×2 (02:10→06:14)
[2017-03-15] MEDS ORDERED: ROCURONIUM INJ 50 MG/5 ML VIAL IV ONE (02:15)
[2017-03-15] MEDS: RESP: ALBUTEROL 2.5 MG/IPRATROPIUM 0.5 MG NEB (SCH) INH ×4 (03:12→22:00)
[2017-03-15] MEDS: CHLORHEXIDINE GLUCONATE 2 % 1 PACK (2 CLOTHS) TOP SCH (04:00)
[2017-03-15] MEDS: INSULIN NovoLIN REGULAR SUPPLEMENTAL SCALE SQ SCH ×6 (04:00→20:00)
[2017-03-15] MEDS: DEXT 5%-NACL 0.9% 1000 ML INJ 1,000 ML IV SCH ×3 (04:14→23:00)
[2017-03-15 05:34] LABS: BASOPHIL % 0.3 % (0.0-2.0); EOSINOPHIL # 0.1 TH/MM3 (0-0.4); EOSINOPHIL % 1.4 % (0.0-4.0); HEMO FLAGS DIFF FINAL; LYMPH % 26.3 % (9.0-44.0); LYMPHOCYTE # 2.6 TH/MM3 (1.0-4.8); MEAN CELL VOLUME 88.4 FL (80.0-100.0); MEAN CORPUSCULAR HEMOGLOBIN 29.1 PG (27.0-34.0); MEAN CORPUSCULAR HGB CONC 32.9 % (32.0-36.0); MONO % 9.8 % (0.0-8.0); NEUT % 62.2 % (16.0-70.0); PLATELET COUNT 156 TH/MM3 (150-450); RED BLOOD COUNT 4.52 MIL/MM3 (4.50-5.90); RED CELL DISTRIBUTION WIDTH 13.8 % (11.6-17.2); WHITE BLOOD COUNT 9.7 TH/MM3 (4.0-11.0)
[2017-03-15 05:56] LABS: ALT (GPT) 15 U/L (12-78); ANION GAP 6 MEQ/L (5-15); AST (GOT) 26 U/L (15-37); BLOOD UREA NITROGEN 10 MG/DL (7-18); CHLORIDE 110 MEQ/L (98-107); GLOMERULAR FILTRATION RATE 98 ML/MIN (>89); POTASSIUM 3.5 MEQ/L (3.5-5.1); SODIUM (NA) 145 MEQ/L (136-145)
[2017-03-15 06:03] LABS: ALKALINE PHOSPHATASE 51 U/L (45-117); TOTAL BILIRUBIN ADULT 0.3 MG/DL (0.2-1.0)
[2017-03-15] MEDS: CHLORHEXIDINE 0.12% (ORAL KIT) 15 ML CUP MT SCH ×2 (08:24→19:50)
--- NOTE | 2017-03-15 08:51 | HHI.CCPN ---
Subjective Remarks/Hospital Course The patient is a 46-year-old male with a history of anxiety who presented to [facility] ED via EMS with altered mental status after a drug ingestion/overdose. The patient was found on the ground in the bathroom with another friend who is also brought into the ED intubated. On arrival to the ED , he was nonverbal, combative towards ED staff. EMS administered Ativan 2 mg IV prior to arrival and in the ED, he was given additional Ativan and Haldol for agitation. He was eventually intubated with Etomidate succinylcholine and placed on full mechanical ventilation. CT scan of the brain in the ED showed no acute intracranial abnormalities and his urine drug screen was positive for benzodiazepines and cannabinoids. His laboratory data was significant for lactic acidemia with lactic acid level of 5.0. The patient was given 2 liters of crystalloid in the ED and his repeat lactic acid cleared at 1.2. Chest x-ray post intubation showed no acute abnormalities. When seen in the ED, he was sedated with Diprivan and on full mechanical ventilation. ABG post-intubation showed a pH of 7.46, CO2 41, pAO2 517, bicarb 29, sats 99%. SUBJ 03/15: Intermittent severe agitation overnight requiring NM paralysis temporarily. Currently heavily sedated with Propofol, versed and fentanyl. Moves all extremities Objective Vital Signs Date Time Temp Pulse Resp B/P (MAP) Pulse Ox O2 Delivery O2 Flow Rate FiO2 03/15/17 08:39 100 40 03/15/17 08:00 56 03/15/17 08:00 97.6 16 99/60 (73) 03/15/17 07:00 Mechanical Ventilator Intake and Output 03/15/17 03/15/17 03/16/17 08:00 16:00 00:00 Intake Total 1382.4 ml Output Total 550 ml Balance 832.4 ml Result Diagram: 03/15/17 0431 03/15/17 0431 Other Results Laboratory Tests Test 03/14/17 09:52 03/15/17 00:58 Blood Gas Puncture Site LT BRACHIAL RT RADIAL Blood Gas Patient Temperature 98.6 98.6 Blood Gas HCO3 29 mmol/L (22-26) 25 mmol/L (22-26) Blood Gas Base Excess 5.3 mmol/L (-2-2) 2.0 mmol/L (-2-2) Blood Gas Oxygen Saturation 99 % (90-100) 98 % (90-100) Arterial Blood pH 7.46 (7.380-7.420) 7.47 (7.380-7.420) Arterial Blood Partial Pressure CO2 41 mmHg (38-42) 35 mmHg (38-42) Arterial Blood Partial Pressure O2 517 mmHG (61-120) 196 mmHg (61-120) Arterial Blood Oxygen Content 21.4 Vol % (12.0-20.0) 19.4 Vol % (12.0-20.0) Arterial Blood Carboxyhemoglobin 0.7 % (0-4) 0.8 % (0-4) Arterial Blood Methemoglobin 0.9 % (0-2) 1.0 % (0-2) Blood Gas Hemoglobin 14.5 G/DL (12.0-16.0) 13.8 G/DL (12.0-16.0) Oxygen Delivery Device VENTILATOR VENTILATOR Blood Gas Ventilator Setting PRVC/AC SEE COMMENT Blood Gas Inspired Oxygen 100 % 40 % Imaging CT of the brain no acute intracranial findings. Chest x-ray post-intubation showed ET tube above the brit. No acute abnormalities. Objective Remarks GEN: This is a 46-year-old male intubated for airway protection, now heavily sedated HEENT: Atraumatic, normocephalic pupil equal and reactive to accommodation. Orotracheally intubated NECK: Supple. No JVD, adenopathy or thyromegaly. Trachea midline. CARDIOVASCULAR: Regular rate and rhythm. Normal S1-S2. No murmurs, rubs or gallops. PULMONARY: Bilateral equal entry. No rales or wheezing. ABDOMEN: Soft, nontender, no distension. Positive bowel sounds. EXTREMITIES: No cyanosis, clubbing or edema. NEUROLOGIC: Intubated and sedated. Moves extremities A/P Assessment and Plan IMPRESSION 1. Altered mental status. 2. Polysubstance abuse 3. Acute respiratory failure. 4. Lactic acidemia -resolved 5. Leukocytosis likely stress-related. RECOMMENDATIONS 1. Continue with Diprivan, Versed and fentanyl infusion for sedation. Start sedation vacation for possible extubation. Use Precedex if needed 2. CT scan of the brain in the ED negative for acute intracranial findings. 3. Continue with vent support and maintain sats above 92%. 4. Bronchodilators in the form of DuoNeb q4 and will initiate ICU vent bundle. 5. Decrease FIO2 to 40% as tolerated. 6. Spontaneous breathing trials today 7. Monitor heart rate and blood pressure closely and maintain MAP greater than 65 mmHg. 8. Lactic acid cleared. The patient was given 2 liters of crystalloids in the ED. Maintenance fluids D5 NS at 84 mL an hour. 9. Monitor renal function and electrolyte replacement per protocol. 10. Keep n.p.o. for now and place on Pepcid 20 mg q12 for GI prophylaxis. 11. Nutritional support via tube feeds if remains intubated. 12. No antibiotics at this time as there are no signs of an infectious process. 13. GI prophylaxis with Pepcid 20 mg [id number] and DVT prophylaxis with SCD's and heparin subcu. Level 3 Tae Grullon MD Mar 15, 2017 08:51
[2017-03-15] MEDS: DOCUSATE SODIUM 50 MG/SENNA 8.6 MG TAB PO SCH ×2 (09:00→20:49)
[2017-03-15] MEDS: HEPARIN SODIUM - SQ 10,000 UNITS/ML VIAL SQ SCH ×2 (11:58→23:13)
--- NOTE | 2017-03-15 14:23 | EKG ---
Date Performed: 03/15/2017 Time Performed: 12:31:12 PTAGE: 46 years EKG: Sinus rhythm . Normal ECG PREVIOUS TRACING : 03/14/2017 07.57 DOCTOR: Bandar Lozano Interpretating Date/Time 03/15/2017 14:23:41
[2017-03-16] VITALS (7 sets, daily range): BP systolic 154–156; BP diastolic 79–89; PULSE 76–91; RESP 30; TEMP 98.3–98.6; O2SAT 99–100
[2017-03-16] MEDS: INSULIN NovoLIN REGULAR SUPPLEMENTAL SCALE SQ SCH ×3 (03:43→08:00)
[2017-03-16] MEDS: CHLORHEXIDINE GLUCONATE 2 % 1 PACK (2 CLOTHS) TOP SCH (03:43)
[2017-03-16] MEDS: RESP: ALBUTEROL 2.5 MG/IPRATROPIUM 0.5 MG NEB (SCH) INH (04:00)
[2017-03-16] MEDS: CHLORHEXIDINE 0.12% (ORAL KIT) 15 ML CUP MT SCH (08:00)
--- NOTE | 2017-03-16 09:00 | HHI.CCPN ---
Subjective Remarks/Hospital Course The patient is a 46-year-old male with a history of anxiety who presented to [facility] ED via EMS with altered mental status after a drug ingestion/overdose. The patient was found on the ground in the bathroom with another friend who is also brought into the ED intubated. On arrival to the ED , he was nonverbal, combative towards ED staff. EMS administered Ativan 2 mg IV prior to arrival and in the ED, he was given additional Ativan and Haldol for agitation. He was eventually intubated with Etomidate succinylcholine and placed on full mechanical ventilation. CT scan of the brain in the ED showed no acute intracranial abnormalities and his urine drug screen was positive for benzodiazepines and cannabinoids. His laboratory data was significant for lactic acidemia with lactic acid level of 5.0. The patient was given 2 liters of crystalloid in the ED and his repeat lactic acid cleared at 1.2. Chest x-ray post intubation showed no acute abnormalities. When seen in the ED, he was sedated with Diprivan and on full mechanical ventilation. ABG post-intubation showed a pH of 7.46, CO2 41, pAO2 517, bicarb 29, sats 99%. SUBJ 03/15: Intermittent severe agitation overnight requiring NM paralysis temporarily. Currently heavily sedated with Propofol, versed and fentanyl. Moves all extremities SUBJ 03/16: Extubated yesterday tolerating well. Administer benzo and heroine abuse-snorting no IV use. Not suicidal. He plans to quit Drug use- advised on attending support groups, and outpatient therapy Objective Vital Signs Date Time Temp Pulse Resp B/P (MAP) Pulse Ox O2 Delivery O2 Flow Rate FiO2 03/16/17 08:14 99 21 03/16/17 06:00 76 03/16/17 04:00 98.3 30 154/89 (110) 03/15/17 19:00 Room Air 03/15/17 09:35 3.00 Intake and Output 03/16/17 03/16/17 03/17/17 08:00 16:00 00:00 Intake Total 960 ml Balance 960 ml Result Diagram: 03/15/17 0431 03/15/[address] of the brain no acute intracranial findings. Chest x-ray post-intubation showed ET tube above the brit. No acute abnormalities. Objective Remarks GEN: This is a 46-year-old alert awake HEENT: Atraumatic, normocephalic pupil equal and reactive to accommodation. NECK: Supple. No JVD, adenopathy or thyromegaly. Trachea midline. CARDIOVASCULAR: Regular rate and rhythm. Normal S1-S2. No murmurs, rubs or gallops. PULMONARY: Bilateral equal entry. No rales or wheezing. ABDOMEN: Soft, nontender, no distension. Positive bowel sounds. EXTREMITIES: No cyanosis, clubbing or edema. NEUROLOGIC: AO 3 nonfocal deficits A/P Assessment and Plan IMPRESSION 1. Altered mental status. 2. Polysubstance abuse 3. Acute respiratory failure. 4. Lactic acidemia -resolved 5. Leukocytosis likely stress-related. RECOMMENDATIONS 1. Discontinue all continuous IV sedation 2. CT scan of the brain in the ED negative for acute intracranial findings. 3. NC oxygen if needed 4. Bronchodilators in the form of DuoNeb q4 and will initiate ICU vent bundle. 5. Monitor heart rate and blood pressure closely and maintain MAP greater than 65 mmHg. 6. Lactic acid cleared. The patient was given 2 liters of crystalloids in the ED. 7. Monitor renal function and electrolyte replacement per protocol. 8. Regular diet Level 2 Not suicidal, willing get OP treatment for drug addiction. Will DC Home Tae Grullon MD Mar 16, 2017 09:00
--- NOTE | 2017-03-16 09:16 | HHI.DS ---
Discharge Summary Admission Date Mar 14, 2017 at 09:39 Admitting Diagnosis altered mental status, drug ingestion, lactic acidosis (1) Acute respiratory failure ICD Code: J96.00 - Acute respiratory failure, unspecified whether with hypoxia or hypercapnia (2) Altered mental status ICD Code: R41.82 - Altered mental status, unspecified Status: Acute (3) Opiate and benzodiazepine OD Brief History The patient is a 46-year-old male with a history of anxiety who presented to [facility] ED via EMS with altered mental status after a drug ingestion/overdose. The patient was found on the ground in the bathroom with another friend who is also brought into the ED intubated. On arrival to the ED , he was nonverbal, combative towards ED staff. EMS administered Ativan 2 mg IV prior to arrival and in the ED, he was given additional Ativan and Haldol for agitation. He was eventually intubated with Etomidate succinylcholine and placed on full mechanical ventilation. CT scan of the brain in the ED showed no acute intracranial abnormalities and his urine drug screen was positive for benzodiazepines and cannabinoids. His laboratory data was significant for lactic acidemia with lactic acid level of 5.0. The patient was given 2 liters of crystalloid in the ED and his repeat lactic acid cleared at 1.2. Chest x-ray post intubation showed no acute abnormalities. When seen in the ED, he was sedated with Diprivan and on full mechanical ventilation. ABG post-intubation showed a pH of 7.46, CO2 41, pAO2 517, bicarb 29, sats 99%. CBC/BMP: 03/15/17 0431 03/15/17 0431 Significant Findings Laboratory Tests Test 03/14/17 07:30 03/14/17 09:52 03/14/17 10:15 03/15/17 00:58 White Blood Count 16.5 TH/MM3 (4.0-11.0) Neutrophils (%) (Auto) 76.4 % (16.0-70.0) Neutrophils # (Auto) 12.6 TH/MM3 (1.8-7.7) Monocytes # (Auto) 1.3 TH/MM3 (0-0.9) Activated Partial Thromboplast Time 23.6 SEC (24.3-30.1) Urine Mucus FEW /lpf (OCC) Random Glucose 121 MG/DL (74-106) Total Protein 8.4 GM/DL (6.4-8.2) Chloride Level 108 MEQ/L (98-107) Estimat Glomerular Filtration Rate 77 ML/MIN (>89) Lactic Acid Level 5.0 mmol/L (0.4-2.0) Salicylates Level 2.5 MG/DL (2.8-20.0) Acetaminophen Level LESS THAN 2.0 MCG/ML Urine Benzodiazepines Screen POS (NEG) Urine Cannabinoids Screen POS (NEG) Blood Gas HCO3 29 mmol/L (22-26) Blood Gas Base Excess 5.3 mmol/L (-2-2) Arterial Blood pH 7.46 (7.380-7.420) 7.47 (7.380-7.420) Arterial Blood Partial Pressure O2 517 mmHG (61-120) 196 mmHg (61-120) Arterial Blood Oxygen Content 21.4 Vol % (12.0-20.0) Arterial Blood Partial Pressure CO2 35 mmHg (38-42) Test 03/15/17 03:00 03/15/17 04:31 03/15/17 13:51 Monocytes (%) (Auto) 9.8 % (0.0-8.0) Monocytes # (Auto) 1.0 TH/MM3 (0-0.9) Total Protein 6.0 GM/DL (6.4-8.2) Albumin 3.2 GM/DL (3.4-5.0) Calcium Level 8.3 MG/DL (8.5-10.1) Chloride Level 110 MEQ/L (98-107) Troponin I LESS THAN 0.02 NG/ML Imaging Ct head negative PE at Discharge GEN: This is a 46-year-old alert awake HEENT: Atraumatic, normocephalic pupil equal and reactive to accommodation. NECK: Supple. No JVD, adenopathy or thyromegaly. Trachea midline. CARDIOVASCULAR: Regular rate and rhythm. Normal S1-S2. No murmurs, rubs or gallops. PULMONARY: Bilateral equal entry. No rales or wheezing. ABDOMEN: Soft, nontender, no distension. Positive bowel sounds. EXTREMITIES: No cyanosis, clubbing or edema. NEUROLOGIC: AO 3 nonfocal deficits Transfer Summary See hospital course Hospital Course The patient is a 46-year-old male with a history of anxiety who presented to [facility] ED via EMS with altered mental status after a drug ingestion/overdose. The patient was found on the ground in the bathroom with another friend who is also brought into the ED intubated. On arrival to the ED , he was nonverbal, combative towards ED staff. EMS administered Ativan 2 mg IV prior to arrival and in the ED, he was given additional Ativan and Haldol for agitation. He was eventually intubated with Etomidate succinylcholine and placed on full mechanical ventilation. CT scan of the brain in the ED showed no acute intracranial abnormalities and his urine drug screen was positive for benzodiazepines and cannabinoids. His laboratory data was significant for lactic acidemia with lactic acid level of 5.0. The patient was given 2 liters of crystalloid in the ED and his repeat lactic acid cleared at 1.2. Chest x-ray post intubation showed no acute abnormalities. When seen in the ED, he was sedated with Diprivan and on full mechanical ventilation. ABG post-intubation showed a pH of 7.46, CO2 41, pAO2 517, bicarb 29, sats 99%. SUBJ 03/15: Intermittent severe agitation overnight requiring NM paralysis temporarily. Currently heavily sedated with Propofol, versed and fentanyl. Moves all extremities SUBJ 03/16: Extubated yesterday tolerating well. Administer benzo and heroine abuse-snorting no IV use. Not suicidal. He plans to quit Drug use- advised on attending support groups, and outpatient therapy. Will DC home today Pt Condition on Discharge: Stable Discharge Disposition: Discharge Home Discharge Instructions DIET: Follow Instructions for: As Tolerated, No Restrictions Speech Therapy-Diet Recommends: Regular Activities you can perform: Regular-No Restrictions Tae Grullon MD Mar 16, 2017 09:16
== END 2017-03-16 10:56 | disposition home or self-care (01) | DRG 917 ==
LOC: NEPE 07:10 → NEDA 09:39 → N03B 14:04
PROVIDERS: ADMIT Internal Medicine Critical Care Medicine; ATTEND Internal Medicine Critical Care Medicine
PROC: 5A1945Z Respiratory Ventilation, 24-96 Consecutive Hours (ICD-10-PCS; principal; 2017-03-14)
PROC: 0BH17EZ Insertion of Endotracheal Airway into Trachea, Via Natural or Artificial Opening (ICD-10-PCS; 2017-03-14)
DX: T40.1X1A Poisoning by heroin, accidental (unintentional), initial encounter (principal); J96.00 Acute respiratory failure, unspecified whether with hypoxia or hypercapnia; E87.2 Acidosis; T42.4X1A Poisoning by benzodiazepines, accidental (unintentional), initial encounter; F41.9 Anxiety disorder, unspecified; F17.200 Nicotine dependence, unspecified, uncomplicated; D72.829 Elevated white blood cell count, unspecified; Y92.003 Bedroom of unspecified non-institutional (private) residence as the place of occurrence of the external cause
CPT/HCPCS: 31500; 36600; 43752; 51702; 70450; 71010; 80053; 80307; 81001; 82550; 82805; 83605; 84484; 85025; 85610; 85730; 87641; 93005; 94002; 94003; 94640; 94664; 96374; 96375; J0330; J1200; J1630; J1644; J2060; J2250; J3010; J7030; J7042